=== PATIENT | female | born 1995 | race Caucasian/White ===

== ENCOUNTER 2016-08-19 18:53 | Emergency (ER) | payer OTHER ==
[~2016-08-19] VITALS: Ht 162.6 cm; Wt 47.2 kg
[~2016-08-19 18:53] MED LIST: HYDR-5688 PO
[2016-08-19 18:59] VITALS: TEMP 36.8; Ht 162.6 cm; Wt 47.2 kg
[2016-08-19] MEDS ORDERED: ACET-1256 PO (19:08)
[2016-08-19 19:36] VITALS: BP 121/86; PULSE 84; O2SAT 96
[2016-08-19] MEDS ORDERED: NORCO 5/325MG HOME PACK PO ONE (19:45)
--- NOTE | 2016-08-21 12:25 | EMERGENCY ROOM VISIT NOTE ---
ED Visit Note First contact with patient: 19:03 Chief Complaint: Jaw pain. History of Present Illness: Ms. Wayne is a 20-year-old white female who ambulates into the [facility] by a male friend complaining of right sided mandibular pain. 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 On August 08 she reports a surgeon did a shaving of the bone in that TMJ. She reports postsurgically she was given narcotics for her pain and has subsequently ran out. She goes on to reports that she has been having worsening pain in the area and she attempted to use jenr-ceh-ratrxwz medications and had no relief of her discomfort. Currently she describes her pain at baseline as a throbbing sensation and sharp with opening and closing her jaw and palpation. She rates her discomfort 10/ 10. Her pain is radiating into the posterior radicular area. She has not identified any alleviating factors related to the pain. Associated with the pain she does report she feels the whole area is swollen. She denies any associated fevers, chills, sweats, skin eruptions, skin color changes, headache , ear drainage, hearing changes, recent trauma, dental pain, sore throat, voice changes, neck pain, nausea/vomiting. Review of Systems: As noted above in history of present illness. 5 body systems were reviewed and found to be negative as noted above. Past Medical History: As previously noted and status post unspecified hernia repair. Current Medications: Patient denies. Allergies to Medications: Toradol, tramadol. Social History: Patient is not employed; she feels safe in her home environment ; she admits to tobacco use and denies alcohol use. Physical Examination: Vital Signs: Date Time Temp Pulse Resp B/P Pulse Ox O2 Delivery O2 Flow Rate FiO2 08/19/16 19:36 84 18 121/86 96 08/19/16 18:59 36.8 105 18 136/96 99 Room Air GENERAL: 20-year-old female in mild to moderate distress due to pain, nontoxic- appearing, afebrile and hemodynamically stable. NEUROLOGICAL: Awake, alert and oriented to person, place and time. Answering questions appropriately and following commands. Good hand eye coordination. No focal motor sensory deficits. SKIN: Warm, dry and pink. No soft tissue eruptions or trauma noted. HEENT: Atraumatic and normocephalic. Over the right side of the face patient' s surgical site is clean dry and intact without signs of infection. External ear is nontender. Auditory canal is pink and patent. Tympanic membrane was partially obscured but what was seen was pearly valverde with normal light reflex. There is no local erythema or edema or tenderness over the mastoid process. No tenderness in the temporal area. No drainage from naris. Oral cavity moist and pink. Mild dental decay was noted but no acute infections were noted. There is no oral erythema or edema. No malocclusion. No voice changes. Posterior pharyngeal area is not erythematous or edematous. No visible abscesses. No tonsillar hypertrophy or exudates. No preauricular, postauricular or submandibular lymphadenopathy. Speech normal. ED Course: Patient is assessed as noted above. I did review the [facility] database on her recent prescriptions; I do note that the physician in question and her surgery has been giving her multiple prescriptions for OxyIR and [place] but limited doses; to 4 days. Her last prescription was approximately one week ago. If he looked over throughout the year she has received a total of 11 different prescriptions for narcotics and not all from the physician who did her surgery. I spoke with the patient and informed her of this finding. I did inform her I felt she had a possible drug addiction program and also to help but she refused. I did inform her that I would give her home pack of [place] which would limit her to 4 tablets and any additional medications would have to come from her surgery. I did also encourage her to talk to her surgeon about possible referrals to pain management and stop the use of narcotics; she did report she would open physician about these concerns. Patient was educated about tonight's findings and instructed on her treatment plan; she verbalizes understanding and agreement with this plan. Clinical Impression: Postsurgical jaw pain. Possible prescription narcotic addiction. Disposition: Patient discharged home accompanied by her boyfriend; prior to departure she was reassessed and continued to rate her discomfort 10/10. Plan: Patient was prescribed for [place] tablets 5/325 mg; she was encouraged to alternate these with ibuprofen every 6 hours as needed for pain. Patient was also encouraged to use ice on the area of pain. Patient was encouraged return to ED as needed for worsening pain, and/or consideration of seeking drug rehabilitation or any new/concerning symptoms. Patient was encouraged to follow up with oral surgeon for definitive care and treatment and referral to pain management.
== END 2016-08-19 19:36 | disposition home or self-care (01) ==
LOC: C.EDB 18:56 → C.EDD 19:36
DX: R68.84 Jaw pain (principal); G89.18 Other acute postprocedural pain

== ENCOUNTER 2024-12-26 23:19 | Inpatient (IN) ==
--- OUTSIDE RECORDS SUMMARY | 2024-12-26 23:24 | External Medical Summary | Summary of Care ---
Author Name Unknown Organization [facility] Address [address] [place] [address] Phone [phone] Care Team Providers Care Tower Attendant Name Role Phone Unavailable Primary Care Provider Unavailabl e Reason for Visit * Reason Comments [facility] Return Encounter Details Date Type Department Care Team (Late st Contact Info) Description 12/21/2024 9:45 AM EDT Office Visit Gynecology/Obstetric s Stacy Barnhart [address] [place] [phone] Sandra Andrade PA-C [address] [place] [phone] Encounter for supervision of other normal , unspecified trimester*; Tobacco smoking affecting in third trimester; Health counseling Allergies Active Allergy Reactions Criticality Noted Date Comments Ketorolac Tromethamine Hives 08/25/2014 Tramadol Hives 08/25/2014 documented as of this encounter (statuses as of 12/21/2024) Medications Vitamins 28-0.8 MG Oral TabletIndicatio ns:Positive test Take 1 Tablet by mouth in the morning. 90 Tablet 3 05/11/2024 Active PriLOSEC 10 MG Oral Packet (Omeprazole Magnesium) Take 20 mg by mouth in the morning and 20 mg before bedtime. Active documented as of this encounter (statuses as of 12/21/2024) Active Problems Problem Noted Date Diagnosed Date Tobacco smoking complicating Health counseling 10/11/2024 Overview (11/12/2024): Problem Action Taken Date entered Entered by Date resolved Poor dental hygiene Encouraged routine dental visits 10/11/2024 Alicia Campoverde RN 10/11/2024 Smoking/tobacco abuse Smoking Education- Cessation encouraged 10/11/2024 Alicia Campoverde RN 10/11/2024 Nutrition Attending [facility] 10/11/2024 Alicia Campoverde RN 10/11/2024 Problem Action Taken Date entered Entered by Date resolved Current needs or questions Patient denies having any current needs or questions 11/12/2024 Caryl Andrade RN 11/12/2024 Encounter for supervision of other normal , unspecified trimester 06/07/2024 Anxiety 07/26/2014 TMJ dysfunction 07/04/2014 Menstruation, irregular 01/03/2014 Tobacco abuse Estimated Date of Delivery Comme nts Yes 12/21/2024 Based on Ultraso und documented as of this encounter (statuses as of 12/21/2024) Resolved Problems Problem Noted Date Diagnosed Date Resolved Date Abnormal glucose tolerance i n mother complicating 10/11/2024 12/14/2024 Presence of intrauterine con traceptive device (IUD) 07/17/2016 12/14/2024 Drug use affecting in third trimester 08/30/2015 11/16/2015 Overview (10/17/2015): Marijuana use during entire . Quit smoking marijuana in August when she initiated conversation about use in /risk of stopping. States with certainty that she stopped using then. Agrees to tox screen. Tobacco smoking complicating 03/08/2015 11/16/2015 Overview (10/17/2015): 5 cigs/day, reduced from 1/2 + daily. , normal first 03/08/201510/18 Overview (10/17/2015): Patient received flu vaccine. 05/31/2015 Priscilla Bella RN 09/27/2015 Tdap Vaccine administered per clinic protocol. Pt given VIS(vaccine information sheet) Francisca L Green, RN Problem Action Taken Date entered Entered by Date resolved First Discussed NFP and Childbirth classes, patient undecided 03/08/2015 Priscilla Bella RN Problem Action Taken Date entered Entered by Date resolved Nausea and vomiting due to Nutrition Review 9 months booklet 03/08/2015 Priscilla Bella RN Problem Action Taken Date entered Entered by Date resolved Smoking/tobacco abuse Smoking Education 03/08/2015 Priscilla Bella RN Problem Action Taken Date entered Entered by Date resolved Nutrition WIC referral 03/08/2015 Priscilla Bella RN 03/08/15 Problem Action Taken Date entered Entered by Date resolved Current needs or questions Patient denies having any current needs or questions 04/05/2015 Dotty Saenz RN Problem Action Taken Date entered Entered by Date resolved Current needs or questions Patient denies having any current needs or questions 05/03/2015 Priscilla Bella RN 05/03/15 Problem Action Taken Date entered Entered by Date resolved Current needs or questions Patient denies having any current needs or questions 06/28/2015 Priscilla Bella RN 06/28/15 Problem Action Taken Date entered Entered by Date resolved Backache Tylenol as needed; comfort measures discussed 07/19/2015 Alicia Campoverde RN Problem Action Taken Date entered Entered by Date resolved Smoking/tobacco abuse Smoking Education 08/01/2015 Priscilla Bella RN 08/01/15 Problem Action Taken Date entered Entered by Date resolved Current needs or questions Patient denies having any current needs or questions 08/16/2015 Dotty Saenz RN 08/16/15 Problem Action Taken Date entered Entered by Date resolved First Declines Childbirth classes 08/30/2015 Priscilla Bella RN 08/30/15 Problem Action Taken Date entered Entered by Date resolved Current needs or questions Patient denies having any current needs or questions 09/11/2015 Alicia Campoverde RN Problem Action Taken Date entered Entered by Date resolved Cold symptoms Comfort measures discussed 09/20/2015 Alicia Campoverde RN Problem Action Taken Date entered Entered by Date resolved Current needs or questions Patient denies having any current needs or questions 09/27/2015 Alicia Campoverde RN Problem Action Taken Date entered Entered by Date resolved Current needs or questions Patient denies having any current needs or questions 10/04/2015 Priscilla Bella RN 10/04/15 Problem Action Taken Date entered Entered by Date resolved Current needs or questions Patient denies having any current needs or questions 10/13/2015 Alicia Campoverde RN Problem Action Taken Date entered Entered by Date resolved Post dates Rationale discussed 10/17/2015 Alicia Campoverde RN Other allergic rhinitis 05/07/201003/2015 Overview (06/10/2017): ICD-10 update of inactive term Anxiety state 08/25/2014 Overview (05/19/2017): ICD-10 update of inactive term documented as of this encounter (statuses as of 12/21/2024) Immunizations Name Administration Dates Next Due DTP/HIB (Tetramune) 02/24/1996, 5,03/20/1995,01/20 DTaP Dipth/Tet/Acell Pertussis (Infanrix), Peds 09/27/2015,12/01/1998 HPV Vaccine, 4-Valent 05/25/2009,01/23/2009,0401/2009 Hepatitis B Vaccine 05/22/1995,01/20/1995,1994 MMR - Measles/Mumps/Rubella Vaccine 12/01/1998,0 11/25/1995 Meningococcal Conjugate Vacc ine (Menactra/Menveo) 11/21/2008 OPV - Polio Virus Vaccine (Oral) 999,05/22/1995,03/20/1995,01/20 PPD 04/24/2012 Pneumococcal Polysaccharide PPV23 (Pneumovax) 01/03/2014 Rabies Vaccine (Rabavert) 12/06/2015,11/22/2015, 11/15/2015 Seasonal Influenza Vac., MDV , IM, 0.5 mL (Fluzone) 05/31/2015,07/26/2014,05/31/2011 Seasonal Influenza, PF, 6 M & above, IM , (FluLaval or Fluzone) 10/30/2017 Seasonal Influenza, Quadriva lent, No Preserve, IM 05/31/2015 TDAP (age 10 and older)(Boostrix) 09/27/2015 TDAP, Age 7 and older, IM (Adacel) 10/11/2024, Varicella Vaccine (Chicken Pox) 11/21/2008,04/26 documented as of this encounter Social History Tobacco Use Types Packs/Day Years Used Date Smoking Tobacco: Every Day Cigarettes 0.5 15.1 Started: 2009 Smokeless Tobacco: Never Alcohol Use Standard Drinks/Week Comments No 0 (1 standard drink = 0.6 oz pur e alcohol) PHQ-2 Answer Date Recorded PHQ-2 Score 7 03/10/2019 Hunger Vital Sign Answer Date Recorded Within the past 12 months, y ou worried that your food would run out before you got the money to buy more. Never true 03/04/20 24 Within the past 12 months, t he food you bought just didn't last and you didn't have money to get more. Never true 03/04/2024 [place] Depression Scale Answer Date Recorded [place] Depression Scale Total 0 11/12/2024 The thought of harming myself has occurred to me . Never 11/12/2024 Childcare Answer Date Recorded Do you feel overwhelmed with taking care of a child, family member or friend? No 03/04/2024 Does your family need help f inding childcare? (Household - for ages 0-17 years) Not on file 03/04/2024 Clothing Answer Date Recorded Have you been unable to get clothing when it was really needed? No 03/04/2024 Is your family able to get c lothes or diapers when needed? (Household - for ages 0-17 years) Not on file 03/04/2024 Personal Safety Answer Date Recorded Do you feel unsafe or have concerns for your saf ety? No 03/04/2024 Do you have concerns for you r family's safety? (Household - for ages 0-17 years) Not on file 03/04/2024 Utilities Answer Date Recorded Do you have trouble paying y our heating, water, or electric bill? No 03/04/2024 Is your family able to pay t he heat, water, or electric bill? (Household - for ages 0-17 years) Not on file 03/04/2024 Does your family have access to good internet? (Household - for ages 0-17 years) Not on file 03/04/2024 Employment Status Answer Date Recorded Are you unemployed or without regular income? No 03/04/2024 Does the household have a re gular source of income? (Household - for ages 0-17 years) Not on file 03/04/2024 Social Connections Answer Date Recorded How often do you feel lonely or isolated from th ose around you? Never 03/04/2024 Financial Resource Strain Answer Date R ecorded Do you have any trouble payi ng for your medications, or do you think you might in the future? No 03/04/2024 Does your family have troubl e paying for medicine? (Household - for ages 0-17 years) Not on file 03/04/2024 Transportation Needs Answer Date Record ed Do you have trouble getting a ride to medical visits or work? (Adult - for ages 18 years and over) Not on file 03/04/2024 Does your family have a hard time getting a ride to doctors visits? (Household - for ages 0-17 years) Not on file 03/04/2024 Has lack of transportation k ept you from medical appointments, meetings, work, or from getting things needed for daily living? Check all that apply. No 03/04/2024 Do you (or your family) have trouble finding or paying for a ride (transportation)? (Household - for ages 0-17 years) Not on file 03/04/2024 Housing Stability Answer Date Recorded Do you currently live in a s helter or have no steady place to sleep at night? No 03/04/2024 Do you think you are at risk of becoming homeless? (Adult - for ages 18 years and over) Not on file 03/04/2024 Does your family worry about paying for your home or becoming homeless? (Household - for ages 0-17 years) Not on file 0 03/04/2024 Are you homeless or worried that you might be in the future? No 03/04/2024 Are you (or your family) noemy eless or worried that you might be in the future? (Household - for ages 0-17 years) Not on file Food Insecurity Answer Date Recorded Do you need food for this week? No 03/04/2024 Are you able to get enough f ood for your family? (Household - for ages 0-17 years) Not on file 03/04/2024 Does your family need food t his week? (Household - for ages 0-17 years) Not on file 03/04/2024 Do you always have enough fo od for your family? (Household - for ages 0-17 years) Not on file 03/04/2024 Food Insecurity Answer Date Recorded Within the past 12 months, y ou worried that your food would run out before you got the money to buy more. Never true 03/04/20 24 Within the past 12 months, t he food you bought just didn't last and you didn't have money to get more. Never true 03/04/2024 Do you need food for this week? 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 Not on file Not on file Not on file documented as of this encounter Last Filed Vital Signs Vital Sign Reading Time Taken Comments Blood Pressure 116/66 12/21/2024 9:41 AM EDT Pulse - - Temperature - - Respiratory Rate - - Oxygen Saturation - - Inhaled Oxygen Concentration - - Weight 85.7 kg (189 lb) 12/21/2024 9:41 AM EDT Height 162.6 cm (5' 4") 12/21/2024 9:41 AM EDT Body Mass Index 32.44 12/21/2024 9:41 AM EDT documented in this encounter Progress Notes * Sandra Andrade PA-C - 12/21/2024 9:44 AM EDT Jillian Wayne is a 29 year old female here for her routine OB appointment at 40w0d Her Estimated Date of Delivery: 12/21/24 Evaluated on L&D yesterday for r/o ROM. No further concerns. REVIEW OF SYSTEMS She affirms movement. Denies vaginal bleeding, LOF, contractions, headaches, vision changes, chest pain, RUQ pain. 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 Name of sorority mother: Caryl Andrade RN. ASSESSMENT/PLAN Encounter for supervision of other normal , unspecified trimester (Primary) Tobacco smoking affecting in third trimester Health counseling Supervision of - labor precautions and kick counts reviewed - post date IOL scheduled 12/28 at [facility] RTO PRN with further Sandra Andrade PA-C 12/21/2024 documented in this encounter Nursing Notes * Caryl Andrade RN - 12/21/2024 10:09 AM EDT Patient seen by [facility]. Patient denies any questions or concerns. Caryl Andrade RN * Jade Salas LPN - 12/21/2024 9:44 AM EDT 40w0d Denies concerns Was at L+D yesterday, r/o ROM. documented in this encounter Plan of Treatment Health Maintenance Due Date Last Done Comments Depression Screening 2006 Pneumococcal Vaccine: Pediatrics (0 to 5 Years) and At-Risk Patients (6 to 18 Years and 19+ Years) (2 of 2 - PCV) 01/03/2015 01/03/2014 COVID-19 Vaccine ( - season) 2024 HPV/Co-Test 2024 Influenza Vaccine (FLU shot) (Season Ended) 2025 10/30/2017, 05/31/2015, 05/31/2015, Additional history exists Cervical Cancer Screening 06/03/2025 Pap Smear 06/03/2025 06/03/2022, 11/25/2018 DTap/Tdap Vaccines (10 - Td or Tdap) 10/11/2034 10/11/2024, 09/27/2015, 09/27/2015, Additional history exists Hepatitis B Vaccine Completed 05/22/1995, 01/20/1995, 1994 MENINGOCOCCAL (MENACTRA/MENVEO) Aged Out 11/21/2008 No longer eligible based on patient's age to complete this topic HPV (Gardasil) Vaccine Completed , 01/23/2009, 11/21/2008 Lipid Panel Completed 01/03/2014 Meningitis B Vaccine (Bexsero/Trumemba) Aged Out No longer eligible based on patient's age to complete this topic documented as of this encounter Medical Devices Implanted Type Area Tile And Marble Installer Device Identifier Shelf Expiration Date Model / Serial / Lot [place] Mini Quick 2/0 [id number] - [id number] Implanted:Qty: 1 on 03/28/2017 by Parveen Berumen DDS at OR [facility] [place] Right: Face JNJ : DEPUY MITEK SURG PROD 12/16/2019 [id number] / / [id number] Description:Right Jaw documented as of this encounter Visit Diagnoses Diagnosis Encounter for supervision of other normal , unspecified trimester- Primary Tobacco smoking affecting in third trimester Health counseling Other specified counseling documented in this encounter
--- OUTSIDE RECORDS SUMMARY | 2024-12-26 23:24 | External Medical Summary | Summary of Care ---
Author Name Unknown Organization [facility] Address [address] [facility] [place] [address] Phone [phone] Care Team Providers Care Barber Stylist Name Role Phone Unavailable Primary Care Provider Unavailabl e Reason for Visit * Reason Onset Date Comments Advice 12/20/[address] Andreas sosa Encounter Details Date Type Department Care Team (Late st Contact Info) Description 12/20/2024 Telephone Gynecology/Obstetrics [facility] [address] [place] [id number] Rodney Munoz MD [address] [place] [phone] Advice (Review with Dr Munoz) Allergies Active Allergy Reactions Criticality Noted Date Comments Ketorolac Tromethamine Hives 08/25/2014 Tramadol Hives 08/25/2014 documented as of this encounter (statuses as of 12/24/2024) Medications Vitamins 28-0.8 MG Oral TabletIndicatio ns:Positive test Take 1 Tablet by mouth in the morning. 90 Tablet 3 05/11/2024 Active PriLOSEC 10 MG Oral Packet (Omeprazole Magnesium) Take 20 mg by mouth in the morning and 20 mg before bedtime. Active documented as of this encounter (statuses as of 12/24/2024) Active Problems Problem Noted Date Diagnosed Date Tobacco smoking complicating Health counseling 10/11/2024 Overview (11/12/2024): Problem Action Taken Date entered Entered by Date resolved Poor dental hygiene Encouraged routine dental visits 10/11/2024 Alicia Campoverde RN 10/11/2024 Smoking/tobacco abuse Smoking Education- Cessation encouraged 10/11/2024 Alicia Campoverde RN 10/11/2024 Nutrition Attending [facility] 10/11/2024 Alicia Campoverde RN 10/11/2024 Problem Action [...] as of this encounter (statuses as of 12/24/2024) Resolved Problems Problem Noted Date Diagnosed Date [...] (10/17/2015): Patient received flu vaccine. 05/31/2015 Priscilla Bella, NAHUN 09/27/2015 Tdap Vaccine administered per clinic protocol. Pt given VIS(vaccine information sheet) Francisca Worthy RN Problem Action Taken Date entered Entered [...] as of this encounter (statuses as of 12/24/2024) Immunizations Name Administration Dates Next Due DTaP Dipth/Tet/Acell Pertussis (Infanrix), Peds 09/27/2015 HPV Vaccine, 4-Valent 05/25/2009,01/23/2009,01/2009 Meningococcal Conjugate Vacc ine (Menactra/Menveo) 11/21/2008 PPD 04/24/2012 Pneumococcal Polysaccharide PPV23 (Pneumovax) 01/03/2014 Rabies Vaccine (Rabavert) 12/06/2015,11/22/2015, 11/15/2015 Seasonal Influenza Vac., MDV , IM, 0.5 mL (Fluzone) 05/31/2015,07/26/2014,05/31/2011 Seasonal Influenza, PF, 6 M & above, IM , (FluLaval or Fluzone) 10/30/2017 Seasonal Influenza, Quadriva lent, No Preserve, IM 05/31/2015 TDAP (age 10 and older)(Boostrix) 09/27/2015 TDAP, Age 7 and older, IM (Adacel) 10/11/2024, Varicella Vaccine (Chicken Pox) 11/21/2008 documented as of this encounter Social History [...] money to get more. 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 Doors Prefitter/Ob Nurse Triage Pool 12/20/24 12:41 PM If the patient is still leaking fluid or had a gush of fluid have the patient come in to L&D micaela checked if nobody can see her in the office. Thanks. Rodney Munoz MD 12/20/2024 12:41 PM Patient notified. L&D made aware. * Telephone Encounter - Nanette Maxwell LPN - 12/20/2024 9:18 AM EDT Pt is currently 39w6d with an Estimated Date of Delivery: 12/21/24 - Patient called Dr. Merrill overnight with wet shorts when waking up. Advised to either come to L&D to be checked or put a pad on to see if it gets saturated. Patient chose to place a pad and monitor. Sent MyG message this morning to nursing. Pad has not needed to be changed. Feels slightly damp but not soaked. +FM, denies bleeding. Mild cramping in lower back and belly. Patient has an appointment tomorrow. There are not any openings in office today. Will have Dr. Munoz streetcar conductor review and advise if patient is ok to wait until appointment tomorrow and monitor. documented in this encounter Plan of Treatment Health Maintenance Due Date Last Done Comments Depression Screening 2006 Pneumococcal Vaccine: Pediatrics (0 to 5 Years) and At-Risk Patients (6 to 18 Years and 19+ Years) (2 of 2 - PCV) 01/03/2015 01/03/2014 COVID-19 Vaccine (1 - season) 2024 HPV/Co-Test 2024 Influenza Vaccine [...] complete this topic HPV (Gardasil) Vaccine Completed 9, 01/23/2009, 11/21/2008 Lipid Panel Completed 01/03/2014 Meningitis B Vaccine (Bexsero/Trumemba) Aged Out No longer eligible based on patient's age to complete this topic documented as of this encounter Medical Devices Implanted Type Area Roll Sheeting Cutter Device Identifier Shelf Expiration Date Model / Serial / Lot Cornell Mini Quick 2/0 [id number] - [id number] Implanted:Qty: 1 on 03/28/2017 by Parveen Berumen DDS at OR [facility] [place] Right: Face JNJ : DEPUY MITEK SURG PROD 12/16/2019 [id number] / / [id number] Description:Right Jaw documented as of this encounter
--- OUTSIDE RECORDS SUMMARY | 2024-12-26 23:24 | External Medical Summary | Summary of Care ---
Author Name Unknown Organization [facility] Address [address] [place] [address] Phone [phone] Care Team Providers Care Coating And Baking Operator Name Role Phone Unavailable Primary Care Provider Unavailabl e Encounter Details Date Type Department Care Team (Late st Contact Info) Description 12/20/2024 Result Scan Unspecified Department <No scans attached> Allergies Active Allergy Reactions Criticality Noted Date [...] 10/11/2024 Alicia Campoverde RN 10/11/2024 Nutrition Attending [facility] 10/11/2024 Alicia Campoverde RN 10/11/2024 Problem Action [...] 12/21/2024) Immunizations Name Administration Dates Next Due DTaP [...] money to get more. Never true 03/04/2024 [place] Depression Scale Answer Date Recorded [place] Depression Scale Total 0 11/12/2024 The thought [...] 03/04/2024 Does the household have a re lar source of income? 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 file Not on file Not on file documented as of this encounter Plan of Treatment Health Maintenance [...] this encounter Medical Devices Implanted Type Area Renewable Energy Technician Device Identifier Shelf Expiration Date Model / Serial / Lot Ponce Mini Quick 2/0 [id number] - [id number] Implanted:Qty: 1 on 03/28/2017 by Parveen Berumen DDS at OR [facility] [place] Right: Face JNJ : DEPUY MITEK SURG PROD 12/16/2019 [id number] / / [id number] Description:Right Jaw documented as of this encounter Procedures Procedure Name Priority Date/Time Associated Diagnosis Comments OUTSIDE LAB RESULTS 12/20/2024 documented in this encounter Results * OUTSIDE LAB RESULTS (12/20/2024) 12/20/2024 us No Physician Data Unknown LABORATORY Final Result documented in this encounter
--- OUTSIDE RECORDS SUMMARY | 2024-12-26 23:24 | External Medical Summary | Summary of Care ---
Author Name Unknown Organization [facility] Address [address] [facility] [place] [address] Phone [phone] Care Team Providers Care Resident Director Name Role Phone Unavailable Primary Care Provider Unavailabl e Reason for Visit * Reason Comments Healthy Beginnings Return Encounter Details Date Type Department Care Team (Late st Contact Info) Description 12/21/2024 9:45 AM EDT Office Visit Gynecology/Obstetric s Stacy Barnhart [address] [place] [address] Sandra Andrade PA-C [address] [place] [phone] Encounter for supervision of other normal , [...] 10/11/2024 Alicia Campoverde RN 10/11/2024 Nutrition Attending [facility] 10/11/2024 Alicia Campoverde RN 10/11/2024 Problem Action [...] money to get more. 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 Name of patient care: aCryl Andrade RN. ASSESSMENT/PLAN Encounter for supervision of other normal , unspecified trimester (Primary) Tobacco smoking affecting in third trimester Health counseling Supervision of - labor precautions and kick counts reviewed - post date IOL scheduled 12/28 at [facility] RTO PRN with further Sandra Andrade PA-C 12/21/2024 documented in this encounter Nursing Notes * Caryl Andrade RN - 12/21/2024 10:09 AM EDT Patient seen by [facility] Medicine Technologist. Patient denies any questions or concerns. Caryl [...] this encounter Medical Devices Implanted Type Area Tree Surgeon Device Identifier Shelf Expiration Date Model / Serial / Lot Hartley Mini Quick 2/0 [id number] - [id number] Implanted:Qty: 1 on 03/28/2017 by Parveen Berumen DDS at OR [facility] [place] Right: Face JNJ : DEPUY MITEK SURG PROD 12/16/2019 [id number] / / [id number] Description:Right Jaw documented as of this encounter Visit Diagnoses Diagnosis Encounter for supervision of other normal , unspecified trimester- Primary Tobacco smoking affecting in third trimester Health counseling Other specified counseling documented in this encounter
[2024-12-27] MEDS ORDERED: OXYTOCIN 30 UNITS/NSS 30 UNITS/500 ML BAG IV PRN ×2 (01:54→13:43)
[2024-12-27] MEDS ORDERED: LIDOCAINE 1% LOCAL 20 ML VIAL INFIL PRN (01:54)
[2024-12-27] MEDS: LACTATED RINGER'S 1,000 ML IV PRN (02:06)
[2024-12-27 02:27] LABS: Hematocrit (blood only) 38.3 % (37.0-47.0); Hemoglobin 13.2 g/dl (12.0-16.0); Mean Corpuscular Hemoglobin 31.4 pg (25.0-34.0); Mean Corpuscular Hgb Conc 34.5 g/dL (32.0-36.0); Mean Platelet Volume 9.2 fL (9.4-12.4); Platelet Count 229 K/uL (130-400); RDW Coefficient of Variation 13.2 % (11.5-14.5); RDW Standard Deviation 43.7 fL (36.4-46.3); Red Blood Count 4.21 M/uL (4.20-5.40); White Blood Count 9.92 K/ul (4.8-10.8)
--- NOTE | 2024-12-27 02:27 | History & Physical Report ---
Date of Service December 27, 2024 Assessment & Plan (1) Post-dates : Plan: Admit in labor. anticipate normal delivery Admission and Anticipated Discharge Date Admission Date: December 27, 2024 History of Present Illness Chief Complaint: labor Primary Care Provider: Bright Brown MD 29 F P1001 at 40.6 weeks admitted in labor. GBS is negative. Allergies Allergy/AdvReac Type Severity Reaction Status Date / Time ketorolac Allergy Intermediate hives Verified 12/20/24 14:20 tramadol Allergy Intermediate hives Verified 12/20/24 14:20 Home Medications Medication Instructions Recorded Confirmed Type omeprazole magnesium 20 mg 20 mg PO DAILY 12/20/24 12/26/24 History tablet,delayed release (Prilosec OTC) vxkyllwk-veh-Qn-FA 1 mg 1 tab PO DAILY 12/20/24 12/26/24 History tablet Patient History Medical History (spontaneous vaginal delivery) 2015 Endometriosis TMJ (dislocation of temporomandibular joint) Anxiety history of Surgical History History of mandibular surgery "TMJ" surgery Family History Father Diabetes Social History Smoking Status: Current every day smoker Tobacco Type: Cigarettes Cigarettes Per Day: 10; Hx Alcohol Use: No Hx Substance Use: No Preferred Language: Russian Communication Ability: Effective Visual Impairment: Limited Home Lighting Adviser Required: No Beliefs That Will Affect Care: None marital status: Single marital status details: Emmanuel De La Rosa Current Living Situation: Family and Significant Other Current Living Situation Comment: daughter age 9 current occupational status: employed current occupation: [employer] Feels Safe at Home: Yes Assistive Devices: None OB History x1 HAT AND CAP OPENER History neg Review of Systems All systems reviewed & are unremarkable except as noted in HPI & below Physical Exam Constitutional: WD/WN, vitals as above Eyes: PERRL, conjunctivae normal, anicteric sclerae Respiratory: normal respiratory effort Cardiovascular: Rate/Rhythm: regular rate and regular rhythm Gastrointestinal (Abdomen): Inspection/Auscultation: abdomen normal to inspection Musculoskeletal: Extremities: extremities normal to inspection Skin: no rashes, warm and dry Neurologic: patellar DTR's 2+ bilat, sensation intact Psychiatric: A+Ox3, euthymic affect Genitourinary: no vaginal lesions, no adnexal mass OB Exam Abdomen: + vertex Manual OB Exam: + cervical dilation 4 cm, + cervical effacement 80% and + station -1 OB Exam Monitor Tracing: + external FHT monitor used, + external uterine monitor used, + category I and + normal FHT variability Results & Data Vital Signs (Past 12 Hours) Vital Signs Temp Pulse Resp BP 12/26/24 23:47 99 H 121/73 12/26/24 23:31 36.4 C L 18 Monitoring External Monitor Cat 1 (1) Post-dates Post-term type: 40-42 weeks gestation Qualified Code(s): O48.0 - Post-term
[2024-12-27] MEDS ORDERED: BUPIVACAINE 0.25% PF 30 ML VIAL EPI PRN (03:00)
[2024-12-27] MEDS ORDERED: LIDOCAINE 2% MPF LOCAL 5 ML VIAL EPI PRN (03:00)
[2024-12-27] MEDS ORDERED: PROMETHAZINE 6.25 MG/50.25 ML BAG IV PRN (03:00)
[2024-12-27] MEDS ORDERED: BUPIVACAINE 0.25% PF 30 ML VIAL EPI STA (03:00)
[2024-12-27] MEDS ORDERED: SODIUM CHLORIDE 0.9% PF INJ 10 ML VIAL EPI PRN (03:00)
[2024-12-27] MEDS ORDERED: ONDANSETRON INJ 2 MG/ML 2 ML VIAL IV PRN (03:00)
[2024-12-27] MEDS ORDERED: LIDOCAINE 2%/EPINEPHRINE 1:200,000 20 ML PF EPI STA (03:00)
[2024-12-27] MEDS ORDERED: fentaNYL citrate PF 100 MCG/2 ML VIAL EPI PRN (03:00)
[2024-12-27] MEDS ORDERED: diphenhydrAMINE 50 MG/ML VIAL IV PRN (03:00)
[2024-12-27] MEDS ORDERED: NALOXONE HCL 0.4 MG/1 ML VIAL/CARP IV PRN (03:00)
[2024-12-27] MEDS ORDERED: NALOXONE HCL 1 MG in SODIUM CHLORIDE 0.9% 1,000 ML IV PRN (03:00)
[2024-12-27] MEDS ORDERED: NALBUPHINE HCL INJ 10 MG/ML AMP IV PRN (03:00)
[2024-12-27] MEDS ORDERED: ROPIVACAINE 0.5% PF 5 MG/ML 20 ML VIAL EPI PRN (03:00)
[2024-12-27] MEDS ORDERED: SODIUM CHLORIDE 0.9% PF INJ 10 ML VIAL EPI STA (03:00)
[2024-12-27] MEDS ORDERED: fentaNYL citrate PF 100 MCG/2 ML VIAL EPI STA (03:00)
--- NOTE | 2024-12-27 03:00 | Anesthesiology Consultation ---
Date of Service December 27, 2024 Assessment & Plan ASA ASA2 Proposed Anesthesia Anesthesia Type: Labor Epidural Risk / Benefits Reviewed With: PT / POA / Parent / Guardian, Accepts Plan and Informed Consent Obtained History Height/Weight Height: 5 ft 4 in Weight: 85.729 kg Allergies Allergy/AdvReac Type Severity Reaction Status Date / Time ketorolac Allergy Intermediate hives Verified 12/20/24 14:20 tramadol Allergy Intermediate hives Verified 12/20/24 14:20 Medications Home Medications Medication Instructions Recorded Confirmed Last Taken omeprazole magnesium 20 mg 20 mg PO DAILY 12/20/24 12/26/24 12/25/24 tablet,delayed release (Prilosec OTC) kbyplgld-ozu-Is-FA 1 mg 1 tab PO DAILY 12/20/24 12/26/24 12/25/24 tablet Active Medications Generic Name Dose Route Start Last Admin Trade Name Freq PRN Reason Stop Dose Admin Ephedrine Sulfate 10 mg 12/27/24 03:00 12/27/24 03:34 Ephedrine Sulfate 50 Mg/Ml Amp IV 12/28/24 02:59 10 mg Q5M PRN Administration Hypotension Lactated Ringer's 1,000 mls @ 125 mls/hr 12/27/24 01:54 12/27/24 03:36 Lr IV 12/29/24 01:53 999 mls/hr .Q8H PRN Administration L&D Protocol Protocol Past Medical History Medical History (spontaneous vaginal delivery) 2015 Endometriosis TMJ (dislocation of temporomandibular joint) Anxiety history of Exercise / Class Metabolic Activity II 4-5 Yardwork/Stairs/Walk up hill Past Family History Family History Father Diabetes Past Surgical History Surgical History History of mandibular surgery "TMJ" surgery Past Anesthesia History No Hx of Anesthesia Complications and No Family Hx of Anesthesia Complications History of PONV No Hx of PONV and No Hx of Motion Sickness Social History Smoking Status: Current every day smoker Smoking cigarettes per day: 10 Hx Alcohol Use: No Hx Substance Use: No substance use type: does not use Review of Systems denies fever/cough/ colds/ chest pain/ SOB/ THERESA denies THERESA Physical Exam Vital Signs Last Vital Signs Temp 36.4 C L 12/26/24 23:31 Pulse 88 12/27/24 03:35 Resp 18 12/26/24 23:31 BP 110/67 12/27/24 03:34 Pulse Ox 99 12/27/24 03:35 ENMT Mouth: no TMJ abnormality and no dentition abnormality Thyromental Distance: > or= 3.5 Finger Breadths Mallampati Class: II Neck neck extension not limited Respiratory normal respiratory effort; no respiratory distress Auscultation: lungs clear to auscultation bilaterally Cardiovascular Rate/Rhythm: regular rate and regular rhythm Neurologic moves all extremities Psychiatric Orientation: alert and oriented x 3 Testing Laboratory Results 12/27/24 02:10
[2024-12-27] MEDS: fentANYL 2 MCG/ML BUPIVacaine 0.125%-NSS 100ML BAG ONE (03:22)
[2024-12-27] MEDS: BUPIVACAINE 0.25% PF 30 ML VIAL ONE (03:27)
[2024-12-27] MEDS: LIDOCAINE 2%/EPINEPHRINE 1:200,000 20 ML PF ONE (03:27)
[2024-12-27] MEDS: fentaNYL citrate PF 100 MCG/2 ML VIAL ONE (03:27)
[2024-12-27] MEDS: SODIUM CHLORIDE 0.9% PF INJ 10 ML VIAL ONE (03:28)
[2024-12-27] MEDS: ePHEDrine sulfate 50 MG/ML AMP ONE (03:28)
[2024-12-27] MEDS: ePHEDrine sulfate 50 MG/ML AMP IV PRN (03:34)
--- NOTE | 2024-12-27 07:24 | Obstetrical Progress Note ---
Date of Service December 27, 2024 Assessment & Plan (1) Post-dates : Plan: Met pt ans spouse Reviewed PNC with pt FHR; CAT1 CTx; irreg VE; /-1 AROM with amnio hook- Very little amnio fluid Anticipate VD Admission and Anticipated Discharge Date Admission Date: December 27, 2024 Results & Data Vital Signs (Past 12 Hours) Vital Signs Temp Pulse Resp BP Pulse Ox 12/27/24 07:20 75 96 12/27/24 07:15 89 97 12/27/24 07:11 86 110/71 12/27/24 07:10 86 98 12/27/24 07:05 83 98 12/27/24 07:00 84 16 97 12/27/24 06:56 85 108/61 12/27/24 06:55 87 97 12/27/24 06:50 71 96 12/27/24 06:45 81 97 12/27/24 06:40 82 115/66 97 12/27/24 06:35 80 98 12/27/24 06:30 90 18 97 12/27/24 06:27 86 117/77 12/27/24 06:25 85 98 12/27/24 06:20 83 96 12/27/24 06:15 79 96 12/27/24 06:11 76 106/55 L 12/27/24 06:10 78 97 12/27/24 06:05 80 96 12/27/24 06:00 77 18 96 12/27/24 05:56 73 113/58 L 12/27/24 05:55 71 97 12/27/24 05:50 79 96 12/27/24 05:45 80 96 12/27/24 05:41 90 103/59 L 12/27/24 05:40 95 H 96 12/27/24 05:35 81 96 12/27/24 05:30 70 18 96 12/27/24 05:25 85 102/63 97 12/27/24 05:20 83 96 12/27/24 05:15 81 97 12/27/24 05:10 87 103/63 96 12/27/24 05:05 84 96 12/27/24 05:00 77 96 12/27/24 04:55 93 H 104/62 97 12/27/24 04:50 82 96 12/27/24 04:45 84 96 12/27/24 04:40 97 H 106/60 97 12/27/24 04:35 92 H 96 12/27/24 04:30 100 H 96 12/27/24 04:25 85 106/57 L 97 12/27/24 04:20 94 H 97 12/27/24 04:15 90 96 12/27/24 04:10 83 108/66 97 12/27/24 04:05 93 H 99 12/27/24 04:00 83 18 98 12/27/24 03:56 103 H 113/63 12/27/24 03:55 99 H 99 12/27/24 03:50 85 99 12/27/24 03:45 99 H 99 12/27/24 03:40 104 H 124/74 100 12/27/24 03:38 86 106/63 12/27/24 03:37 88 117/69 12/27/24 03:35 88 99 12/27/24 03:34 78 110/67 12/27/24 03:32 93 H 107/64 12/27/24 03:30 36.6 C 99 H 18 85/47 L 98 12/27/24 03:28 105 H 90/54 L 12/27/24 03:26 101 H 98/60 L 12/27/24 03:25 96 H 96 12/27/24 03:24 118 H 95/60 L 12/27/24 03:22 111 H 111/63 12/27/24 03:20 115 H 119/72 98 12/27/24 03:15 95 H 97 12/27/24 03:10 93 H 98 12/27/24 03:05 90 98 12/26/24 23:47 99 H 121/73 12/26/24 23:31 36.4 C L 18 (1) Post-dates Post-term type: 40-42 weeks gestation Qualified Code(s): O48.0 - Post-term
[2024-12-27] MEDS: OXYTOCIN 30 UNITS/NSS 30 UNITS/500 ML BAG IV PRN (08:25)
[2024-12-27] MEDS: fentANYL 2 MCG/ML BUPIVacaine 0.125%-NSS 100ML BAG EPI PRN (08:54)
[2024-12-27] MEDS: TERBUTALINE SULFATE 1 MG/ML VIAL ONE ×2 (09:22→13:21)
--- NOTE | 2024-12-27 09:37 | Obstetrical Progress Note ---
Date of Service December 27, 2024 Assessment & Plan (1) Post-dates : Plan: Called to evaluate pt with decel in 70's On arrival pt was on her rt side with nasal oxygen and Pitocin turned off IVF bolus started VE; /+1 station with bloody show Turb. 0.25mg SQ given Fetus responded to scalp simulation. pt was turned to left side back to right side and then Knee to chest position 'FHR returned to baseline FHR returned to CAT1 Expectant management for now Admission and Anticipated Discharge Date Admission Date: December 27, 2024 Results & Data Vital Signs (Past 12 Hours) Vital Signs Temp Pulse Resp BP Pulse Ox 12/27/24 09:26 95 H 119/69 12/27/24 09:25 97 H 76/52 L 100 12/27/24 09:20 85 100 12/27/24 09:15 88 99 12/27/24 09:10 70 100 12/27/24 09:05 75 96 12/27/24 09:00 76 97 12/27/24 08:56 73 104/63 12/27/24 08:55 77 97 12/27/24 08:50 78 96 12/27/24 08:45 89 98 12/27/24 08:41 74 103/58 L 12/27/24 08:40 73 97 12/27/24 08:35 76 96 12/27/24 08:30 82 97 12/27/24 08:27 80 116/55 L 12/27/24 08:25 74 97 12/27/24 08:20 75 95 12/27/24 08:15 73 97 12/27/24 08:11 78 100/62 12/27/24 08:10 77 97 12/27/24 08:05 85 97 12/27/24 08:00 79 98 12/27/24 07:56 80 105/58 L 12/27/24 07:55 83 97 12/27/24 07:50 79 98 12/27/24 07:45 85 98 12/27/24 07:41 72 100/61 12/27/24 07:40 72 96 12/27/24 07:35 81 98 12/27/24 07:30 89 99 12/27/24 07:25 97 12/27/24 07:25 80 12/27/24 07:25 75 107/76 12/27/24 07:20 75 96 12/27/24 07:15 89 97 12/27/24 07:11 86 110/71 12/27/24 07:10 86 98 12/27/24 07:05 83 98 12/27/24 07:00 84 16 97 12/27/24 06:56 85 108/61 12/27/24 06:55 87 97 12/27/24 06:50 71 96 12/27/24 06:45 81 97 12/27/24 06:40 82 115/66 97 12/27/24 06:35 80 98 12/27/24 06:30 90 18 97 12/27/24 06:27 86 117/77 12/27/24 06:25 85 98 12/27/24 06:20 83 96 12/27/24 06:15 79 96 12/27/24 06:11 76 106/55 L 12/27/24 06:10 78 97 12/27/24 06:05 80 96 12/27/24 06:00 77 18 96 12/27/24 05:56 73 113/58 L 12/27/24 05:55 71 97 12/27/24 05:50 79 96 12/27/24 05:45 80 96 12/27/24 05:41 90 103/59 L 12/27/24 05:40 95 H 96 12/27/24 05:35 81 96 12/27/24 05:30 70 18 96 12/27/24 05:25 85 102/63 97 12/27/24 05:20 83 96 12/27/24 05:15 81 97 12/27/24 05:10 87 103/63 96 12/27/24 05:05 84 96 12/27/24 05:00 77 96 12/27/24 04:55 93 H 104/62 97 12/27/24 04:50 82 96 12/27/24 04:45 84 96 12/27/24 04:40 97 H 106/60 97 12/27/24 04:35 92 H 96 12/27/24 04:30 100 H 96 12/27/24 04:25 85 106/57 L 97 12/27/24 04:20 94 H 97 12/27/24 04:15 90 96 12/27/24 04:10 83 108/66 97 12/27/24 04:05 93 H 99 12/27/24 04:00 83 18 98 12/27/24 03:56 103 H 113/63 12/27/24 03:55 99 H 99 12/27/24 03:50 85 99 12/27/24 03:45 99 H 99 12/27/24 03:40 104 H 124/74 100 12/27/24 03:38 86 106/63 12/27/24 03:37 88 117/69 12/27/24 03:35 88 99 12/27/24 03:34 78 110/67 12/27/24 03:32 93 H 107/64 12/27/24 03:30 36.6 C 99 H 18 85/47 L 98 12/27/24 03:28 105 H 90/54 L 12/27/24 03:26 101 H 98/60 L 12/27/24 03:25 96 H 96 12/27/24 03:24 118 H 95/60 L 12/27/24 03:22 111 H 111/63 12/27/24 03:20 115 H 119/72 98 12/27/24 03:15 95 H 97 12/27/24 03:10 93 H 98 12/27/24 03:05 90 98 12/26/24 23:47 99 H 121/73 12/26/24 23:31 36.4 C L 18 (1) Post-dates Post-term type: 40-42 weeks gestation Qualified Code(s): O48.0 - Post-term
[2024-12-27] MEDS: METHYLERGONOVINE MALEATE 0.2 MG/ML AMP ONE (13:36)
[2024-12-27] MEDS ORDERED: BENZOCAINE 20% SPRY 85 APPLN/85 GM CAN EXT PRN (13:43)
[2024-12-27] MEDS ORDERED: ACETAMINOPHEN 325 MG TAB PO PRN (13:43)
[2024-12-27] MEDS ORDERED: METHYLERGONOVINE MALEATE 0.2 MG/ML AMP IM ONE (13:43)
[2024-12-27] MEDS ORDERED: HYDROCORTISONE ACETATE 25 MG SUPP PR PRN (13:43)
[2024-12-27] MEDS ORDERED: bisacodyL 10 MG SUPP PR PRN (13:43)
[2024-12-27] MEDS ORDERED: DIPHTHER/TETAN/PERTUS Vaccine (Tdap, Adol/Adult) 0.5mL IM ONE (13:43)
[2024-12-27] MEDS ORDERED: miSOPROStoL 200 MCG TAB PR ONE ×2 (13:43)
--- NOTE | 2024-12-27 13:46 | Delivery Summary ---
Vaginal Delivery Summary Date of Service December 27, 2024 Vaginal Delivery Summary DELIVERY NOTE Patient delivered a live infant male in left occiput anterior presentation there was nuchal cord x2 which was easily reduced. was delivered and placed on mother's abdomen. Delayed cord clamping was performed. Cord blood is obtained Cord gasses are obtained Meconium is present Placenta is spontaneously delivered. Placenta appears grossly normal and has 3 vessel cord Inspection of the perineum showed no lacerations Quantitative blood loss is 100 cc per Infants weight and scores are in the pediatric record Mother and baby are stable in in the recovery
--- NOTE | 2024-12-27 13:50 | Obstetrical Progress Note ---
Date of Service December 27, 2024 Assessment & Plan (1) Post-dates : Plan: Called to room to evaluate patient with heart rate in the 80s and 90s. On arrival patient was on the left side she was turned to her right side back to the left side and then to knee chest position. heart rate continued to be in the 70s. Pitocin had been turned off and oxygen given. Terbutaline given subcu as well. On examination she was fully [id number] effaced and +2 station. Patient was made to start pushing. Multiple vacuum extractor.. She quickly delivered a live . Vacuum extractor was not used in the delivery. Details of the delivery in the delivery note. Admission and Anticipated Discharge Date Admission Date: December 27, 2024 Results & Data Vital Signs (Past 12 Hours) Vital Signs Temp Pulse Resp BP Pulse Ox 12/27/24 13:41 118 H 111/67 12/27/24 13:30 92 H 98 12/27/24 13:26 105 H 114/77 12/27/24 13:25 104 H 98 12/27/24 13:20 91 H 99 12/27/24 13:15 107 H 76 L 12/27/24 13:12 87 91 12/27/24 13:10 88 99 12/27/24 13:05 88 99 12/27/24 13:00 81 97 12/27/24 12:57 88 127/63 12/27/24 12:55 92 H 97 12/27/24 12:50 81 98 12/27/24 12:45 88 98 12/27/24 12:42 89 93/57 L 12/27/24 12:40 91 H 98 12/27/24 12:35 89 97 12/27/24 12:30 83 96 12/27/24 12:25 92 H 110/70 98 12/27/24 12:20 83 98 12/27/24 12:15 85 97 12/27/24 12:10 85 100/61 98 12/27/24 12:05 86 96 12/27/24 12:00 94 H 98 12/27/24 11:58 36.5 C 85 16 105/63 12/27/24 11:55 93 H 99 12/27/24 11:50 90 95 12/27/24 11:45 91 H 97 12/27/24 11:41 89 99/64 L 12/27/24 11:40 100 H 99 12/27/24 11:35 96 H 98 12/27/24 11:30 91 H 97 12/27/24 11:27 85 106/62 12/27/24 11:25 90 96 12/27/24 11:20 88 96 12/27/24 11:15 92 H 96 12/27/24 11:11 86 110/68 12/27/24 11:10 96 H 97 12/27/24 11:07 92 H 93 12/27/24 11:05 93 H 95 12/27/24 11:00 106 H 98 12/27/24 10:55 102 H 111/65 97 12/27/24 10:51 94 H 94 12/27/24 10:50 95 H 95 12/27/24 10:45 94 12/27/24 10:45 94 H 12/27/24 10:45 90 94 12/27/24 10:40 98 H 105/61 97 12/27/24 10:39 101 H 94 12/27/24 10:35 102 H 98 12/27/24 10:30 100 H 97 12/27/24 10:26 102 H 113/61 12/27/24 10:25 103 H 96 12/27/24 10:23 95 H 94 12/27/24 10:20 94 H 94 12/27/24 10:17 95 H 94 12/27/24 10:15 97 H 97 12/27/24 10:11 107 H 120/83 12/27/24 10:10 99 H 98 12/27/24 10:05 101 H 98 12/27/24 10:00 124 H 100 12/27/24 09:57 36.6 C 112 H 20 108/69 12/27/24 09:55 117 H 99 12/27/24 09:50 113 H 98 12/27/24 09:45 110 H 100 12/27/24 09:41 105 H 119/68 12/27/24 09:40 109 H 100 12/27/24 09:35 106 H 99 12/27/24 09:30 99 H 100 12/27/24 09:26 95 H 119/69 12/27/24 09:25 97 H 76/52 L 100 12/27/24 09:20 85 100 12/27/24 09:15 88 99 12/27/24 09:10 70 100 12/27/24 09:05 75 96 12/27/24 09:00 76 97 12/27/24 08:56 73 104/63 12/27/24 08:55 77 97 12/27/24 08:50 78 96 12/27/24 08:45 89 98 12/27/24 08:41 74 103/58 L 12/27/24 08:40 73 97 12/27/24 08:35 76 96 12/27/24 08:30 82 97 12/27/24 08:27 80 116/55 L 12/27/24 08:25 74 97 12/27/24 08:20 75 95 12/27/24 08:15 73 97 12/27/24 08:11 78 100/62 12/27/24 08:10 77 97 12/27/24 08:05 85 97 12/27/24 08:00 79 98 12/27/24 07:56 80 105/58 L 12/27/24 07:55 83 97 12/27/24 07:50 79 98 12/27/24 07:45 85 98 12/27/24 07:41 72 100/61 12/27/24 07:40 72 96 12/27/24 07:35 81 98 12/27/24 07:30 89 99 12/27/24 07:25 97 12/27/24 07:25 80 12/27/24 07:25 75 107/76 12/27/24 07:20 75 96 12/27/24 07:15 89 97 12/27/24 07:11 86 110/71 12/27/24 07:10 86 98 12/27/24 07:05 83 98 12/27/24 07:00 84 16 97 12/27/24 06:56 85 108/61 12/27/24 06:55 87 97 12/27/24 06:50 71 96 12/27/24 06:45 81 97 12/27/24 06:40 82 115/66 97 12/27/24 06:35 80 98 12/27/24 06:30 90 18 97 12/27/24 06:27 86 117/77 05 06:25 85 98 12/27/24 06:20 83 96 05 06:15 79 96 05/12/25 06:11 76 106/55 L 12/27/24 06:10 78 97 12/27/24 06:05 80 96 12/27/24 06:00 77 18 96 12/27/24 05:56 73 113/58 L 12/27/24 05:55 71 97 12/27/24 05:50 79 96 12/27/24 05:45 80 96 12/27/24 05:41 90 103/59 L 12/27/24 05:40 95 H 96 12/27/24 05:35 81 96 12/27/24 05:30 70 18 96 12/27/24 05:25 85 102/63 97 12/27/24 05:20 83 96 12/27/24 05:15 81 97 12/27/24 05:10 87 103/63 96 12/27/24 05:05 84 96 12/27/24 05:00 77 96 12/27/24 04:55 93 H 104/62 97 12/27/24 04:50 82 96 12/27/24 04:45 84 96 12/27/24 04:40 97 H 106/60 97 12/27/24 04:35 92 H 96 12/27/24 04:30 100 H 96 12/27/24 04:25 85 106/57 L 97 12/27/24 04:20 94 H 97 12/27/24 04:15 90 96 12/27/24 04:10 83 108/66 97 12/27/24 04:05 93 H 99 12/27/24 04:00 83 18 98 12/27/24 03:56 103 H 113/63 12/27/24 03:55 99 H 99 12/27/24 03:50 85 99 12/27/24 03:45 99 H 99 12/27/24 03:40 104 H 124/74 100 12/27/24 03:38 86 106/63 12/27/24 03:37 88 117/69 12/27/24 03:35 88 99 12/27/24 03:34 78 110/67 12/27/24 03:32 93 H 107/64 12/27/24 03:30 36.6 C 99 H 18 85/47 L 98 12/27/24 03:28 105 H 90/54 L 12/27/24 03:26 101 H 98/60 L 12/27/24 03:25 96 H 96 12/27/24 03:24 118 H 95/60 L 12/27/24 03:22 111 H 111/63 12/27/24 03:20 115 H 119/72 98 12/27/24 03:15 95 H 97 12/27/24 03:10 93 H 98 12/27/24 03:05 90 98 (1) Post-dates Post-term type: 40-42 weeks gestation Qualified Code(s): O48.0 - Post-term
[2024-12-27] MEDS: IBUPROFEN 600 MG TAB PO PRN (14:01)
[2024-12-27] MEDS: miSOPROStoL 200 MCG TAB ONE (14:03)
[2024-12-27 14:16] LABS: Base Excess Cord Arterial Bld -5.1 mEq/L (-9-1.8); CO2 Cord Arterial Blood 74 mmHg (39.1-73.5); HCO3 Cord Arterial Blood 26 mmol/L (19.7-28.5); Oxygen Sat Cord Arterial Blood < 60.0 % (<60); PO2 Cord Arterial Blood < 20 mmHg (4.1-31.7); pH Cord Arterial Blood 7.15 (7.1-7.38)
[2024-12-27 14:19] LABS: Base Excess Cord Venous Blood -5.5 mEq/L (-7.7-1.9); Cord Venous Blood HCO3 22 mmol/L (18.4-26.8); Cord Venous Blood PCO2 49 mmHg (30.4-57.2); Cord Venous Blood PO2 33 mmHg (14.1-43.3); Cord Venous Blood pH 7.26 (7.20-7.44); O2 Saturation Cord Venous Bld 66.2 % (<68)
--- NOTE | 2024-12-27 15:02 | Anesthesia Procedure Note ---
Date of Service December 27, 2024 Anesthesia Post Epidural Note Vital Signs Vital Signs: Temp Pulse Resp BP Pulse Ox 36.5 C 92 H 18 108/64 98 12/27/24 11:58 12/27/24 14:55 12/27/24 12:05 12/27/24 14:55 12/27/24 13:30 Notes Mental Status: alert / awake / arousable and participated in evaluation Patient Amnestic to Procedure: No Nausea / Vomiting: adequately controlled Pain: adequately controlled Airway Patency, RR, SpO2: stable & adequate BP & HR: stable & adequate Hydration State: stable & adequate Neuraxial Anesthesia: was administered and sensory block is resolving Anesthetic Complications: no major complications apparent and Pt Satisfied with anesthetic care Epidural: Removed without complications and With tip intact
[2024-12-27] MEDS: DOCUSATE SODIUM 100 MG CAP PO SCH (21:36)
[2024-12-28 06:14] LABS: Hematocrit (blood only) 34.3 % (37.0-47.0); Hemoglobin 11.9 g/dl (12.0-16.0); Mean Corpuscular Hemoglobin 31.7 pg (25.0-34.0); Mean Corpuscular Hgb Conc 34.7 g/dL (32.0-36.0); Mean Corpuscular Volume 91.5 fL (80.0-100.0); Mean Platelet Volume 9.4 fL (9.4-12.4); Platelet Count 163 K/uL (130-400); RDW Coefficient of Variation 13.1 % (11.5-14.5); RDW Standard Deviation 43.2 fL (36.4-46.3); Red Blood Count 3.75 M/uL (4.20-5.40)
[2024-12-28] MEDS: PRENATAL VITAMIN 1 TAB PO SCH (08:45)
--- NOTE | 2024-12-28 10:11 | Obstetrical Progress Note ---
Date of Service December 28, 2024 Assessment & Plan (1) Normal course: Post day#1 Vaginal delivery Pt doing well No complaints Stable vitals Stable labs. H/H: 11.9/34.3 Tolerating PO food and med Pt wishes to be discharged home Results & Data Vital Signs (Past 12 Hours) Vital Signs Temp Pulse Resp BP Pulse Ox O2 Del Method 12/28/24 07:35 36.6 C 66 16 119/79 98 Room Air 12/28/24 03:15 36.8 C 76 18 112/73 98 Room Air 12/27/24 23:20 37.0 C 88 16 114/71 97 Room Air
[2024-12-28 12:58] VITALS: BP 111/73; PULSE 80; RESP 18; TEMP 97.5; O2SAT 97
[2024-12-28] MEDS ORDERED: bisacodyL 5 MG TABEC PO SCH (20:00)
== END 2024-12-28 16:05 | disposition home or self-care (01) | DRG 807 ==
LOC: OPB 23:19 → 4S1 23:21 → 4E2 12-27 17:22